=== PATIENT | male | born 1955 | race Caucasian/White ===

== ENCOUNTER 2023-05-03 06:24 | Day surgery (SDC) | payer MEDICARE, SELFPAY ==
--- NOTE | 2023-05-03 06:54 | W.ANESPRE ---
General Info Date of Service Date Performed: 05/03/23 Height: 6 ft 4 in Weight: 97.522 kg Body Mass Index (BMI): 26.2 Surgical Procedure: Operation Date: 05/03/23 07:40 Proposed Procedure Side Surgeon p Cataract Extraction with IOL Implant Right Cal Marques MD Meds Allergies and Home Medications Allergies Allergy/AdvReac Type Severity Reaction Status Date / Time No Known Allergies Allergy Unverified 05/03/23 06:51 Home Medication Medication Instructions Recorded multivitamin 1 tab PO DAILY 04/30/23 PFS Active Problems Active Problems: Problem Status Onset Code Nuclear age-related cataract, right eye H25.11 Posterior subcapsular age-related cataract, right eye H25.041 Medical History Medical History Actinic keratosis Amnesia, global, transient 2014 Arm fracture Cataract Furuncle Hemorrhoids, external Hip pain Hx of low back pain Nasal congestion Seborrheic keratosis Surgical History Surgical History (Updated 05/03/23 @ 06:49 by Shanel Brown) H/O hand surgery H/O nasal septoplasty Septorhinoplasty History of tonsillectomy and adenoidectomy Hx of vasectomy Tobacco Smoking/Tobacco Use Status: Never Alcohol Alcohol Intake: former Substance Use Substance use: Never Substance use type: does not use Vital Signs and Lab Results Lab Results Blood Type / Crossmatch: No Data to Display Complete Blood Count: No Data to Display Complete Metabolic Panel: No Data to Display Liver Function Panel: No Data to Display Coagulation Panel: No Data to Display Cardiac Panel: No Data to Display Arterial Blood Gas: No Data to Display Venous Blood Gas: No Data to Display Pancreas Panel: No Data to Display Thyroid Panel: No Data to Display Infectious Disease: No Data to Display Blood Cultures: No Data to Display Toxicology Panel: No Data to Display Anesthesia Assessment and Plan Anesthesia History Personal History: No History of Anesthesia Complications Family History: No Family History of Anesthesia Complications Exercise Tolerance Exercise Tolerance: Metabolic Equivalents>4 Pertinent Negatives Pertinent Negatives: No Symptoms of GERD Cardiac & Pulmonary Exam Cardiac Exam: Normal S1/S2 Heart Sounds Pulmonary Exam: Clear Bilateral Breath Sounds Implantable Cardiac Device Does patient have a Pacemaker or an ICD?: No Airway Exam Known Difficult Airway: No Mallampati Class: 2 Mouth Opening: Normal (> 3cm) Thyromental Distance: Greater than 3 cm Neck Range of Motion: Full ROM Neck Circumference: Normal Teeth Condition: Normal Dentition ASA Classification ASA Score: ASA 2 Emergency Case?: No NPO Status NPO Status: NPO Clears >2 hours, Solids >8 hours Anesthesia Plan Resuscitation Status: Full Code Anesthesia Technique: MAC Anesthesia Airway Planned: Natural Airway Monitors Used: Standard Monitors
[2023-05-03 06:55] VITALS: BMI 26.2
[2023-05-03] MEDS: Tropicam./Phenyleph. (1/2.5%) 5 ML BTL ×3 (06:57→07:17)
[2023-05-03 07:02] VITALS: BP 137/77; PULSE 75; RESP 16; TEMP 37; O2SAT 95
[2023-05-03] MEDS: Duovisc Viscoelastic System EACH 1 EACH (07:36)
[2023-05-03] MEDS: Lidocaine 1% Pres-Free 5 ML VIAL (07:37)
[2023-05-03] MEDS: Povidone-Iodine Ophth 30 ML BTL (07:38)
[2023-05-03] MEDS: Phenylephrine/Lidocaine (15/10) MG/ML 1 ML VIAL (07:38)
[2023-05-03] MEDS: Trypan Blue 0.06% 0.5 ML SYR (07:39)
[2023-05-03] MEDS: Tetracaine 0.5% 4 ML BTL (07:39)
[2023-05-03 07:56] VITALS: BP 120/79; PULSE 74; RESP 16; TEMP 36.2; O2SAT 96
--- NOTE | 2023-05-03 07:57 | W.PM.DSUDISC ---
Date of service: 05/03/23 Time of Service: 07:58 Discharge Plan Disposition Patient Disposition: Home Discharge Details Attending Provider: Cal Marques Primary Care Provider: Joesph Gamez Home Meds and New Rx's Prescriptions: No Action multivitamin Tablet 1 tab PO DAILY Discharge Instructions Stand Alone Forms: Post-op Topical Cataract, Corey mR (DSU) Discharge Orders Discharge Orders: Discharge Order (Routine); Ordered 05/03/23 Ordered By: Cal Marques DS: Diagnosis Discharge Diagnosis (1) Nuclear age-related cataract, right eye: Status: Resolved (2) Posterior subcapsular age-related cataract, right eye: Status: Resolved
--- NOTE | 2023-05-03 07:59 | W.PM.OP ---
Date of service: 05/03/23 Time of Service: 07:59 Operative Note Operative Note DATE OF PROCEDURE: 05/03/23 PRE-OP DIAGNOSIS: Nuclear/posterior subcapsular cataract, right eye POST-OP DIAGNOSIS: same PROCEDURE: Cataract extraction using phacoemulsification with intraocular lens implant, right eye SURGEON: Cal Marques ANESTHESIA TYPE: Local By Surgeon and MAC Refer to Anesthesia Record ESTIMATED BLOOD LOSS: 0 PATHOLOGY: none sent COMPLICATIONS: None Patient was transported to: same day Patient's condition: stable Implants: Jesse [employer] Jesse [employer] Eyhance [id number] Indications: Progressive visual loss due to cataract, right eye Procedure Description: CATARACT SURGERY OPERATIVE REPORT PREOPERATIVE DIAGNOSIS: 1. Dense nuclear/posterior subcapsular cataract, right eye POSTOPERATIVE DIAGNOSIS: Same OPERATION: 1. Cataract extraction using phacoemulsification with posterior chamber intraocular lens implant, right eye. IOL: IOL Aircraft Avionics Technician/Model: Jesse [employer] Jesse [employer]nis Eyhance DIB00 IOL Power: + 18.5 diopters IOL Serial Number: [id number] Optic Diameter: 6.0mm Haptic/Overall Diameter: 13.0mm PHACO INFO: Jose [employer]ion Vision System with OZil and Active Fluidics Cumulative Dispersed Energy (CDE): 19.49 seconds SURGEON: Cal Marques MD, PAZ ANESTHESIA: Monitored Anesthesia Care (MAC), with local sub-tenon's anesthetic infiltration COMPLICATIONS: None SPECIMENS: None INDICATIONS FOR PROCEDURE: The patient is a 68-year-old male with history of diminished visual acuity in his right eye secondary to the development of dense nuclear/posterior subcapsular cataract. He has a history of myopia and desires to remain moderately myopic following cataract surgery. Postoperative refractive target is -2.0 diopters. See office notes for detailed information. PROCEDURE: The correct surgical eye was identified and marked as the right eye and the pupil was dilated in the preoperative area using mydriatics and cycloplegics. The dilated pupil size was 7.0 mm. The patient elected to proceed without oral sedation. The patient was brought to the operating room where cardiopulmonary monitoring was instituted and surgical time-out was performed, confirming the correct operative eye and IOL power. Topical anesthesia was administered and ophthalmic povidone-iodine 5% was instilled into the conjunctival fornices. The chyuita-ocular area was prepped with Betadine 10% solution and draped in the usual sterile fashion for intraocular surgery, including an aperture drape. A Tegaderm transparent film dressing was cut in half and used to cover the lashes and lid margins. Care was taken to sequester the lashes and lid margins under the Tegaderm dressing. A lid speculum was placed between the lids of the operative eye and the Jose [employer] operating microscope was maneuvered into position. Amrit scissors were then used to make a conjunctival buttonhole approximately 6mm posterior to the limbus in the inferonasal quadrant. Blunt dissection was carried out to expose bare sclera, and a blunt-tipped sub-tenon?s anesthesia cannula was introduced and passed posteriorly along the globe where non-preserved plain lidocaine was injected into posterior sub-Tenon?s space. A sideport knife was used to make a paracentesis port. VisionBlue was injected into the anterior chamber and allowed to sit for 15 to 20 seconds. Intraocular phenylephrine/lidocaine was injected into the anterior chamber. The anterior chamber was filled with viscoelastic. A keratome knife was used to construct a 2-plane clear corneal tunnel extending 2.0mm into clear cornea. A flap was raised on the anterior capsule and capsulorhexis forceps were used to complete a continuous curvilinear capsulorhexis of 5.0 mm. Balanced salt solution was then used to perform cortical cleaving hydrodissection and nuclear hydrodelineation until the lens could be freely rotated within the capsular bag. The lens nucleus was then disassembled and removed within the capsular bag and iris plane using phacoemulsification. Residual cortical material was removed using the I/A handpiece. The posterior capsule was carefully polished to remove as much residual lens epithelial cells as safely possible. The capsular bag was then inflated and the anterior chamber deepened with cohesive viscoelastic. The lens implant described above was inserted into the capsular bag using the Jesse and Kd Simplicity pre-loaded injector. A Kuglen hook was used to dial the IOL into position. Residual viscoelastic was then removed first from posterior to the IOL, then from the anterior chamber using the I/A handpiece. The lens implant was noted to center nicely within the capsular bag. The incisions were stromally hydrated, and the anterior chamber was reformed using BSS. Then 0.5cc of moxifloxacin 1.0mg/ml were injected into the capsular bag and anterior chamber. The incisions were checked with a Weck spear and found to be secure. Several drops of ophthalmic povidone-iodine 5% were then applied to the eye followed by two drops of Imprimis combination prednisolone/moxifloxacin/nepafenac solution. The drapes were removed and a clear plastic protective eye shield was placed over the eye. The patient was then returned to [facility] in stable condition.
--- NOTE | 2023-05-03 08:17 | W.ANESPOSTOP ---
Postoperative Evaluation Date, Time and Location Date Performed: 05/03/23 Time Performed: 08:17 Patient Location: Day Surgery Unit Vital Signs Most Recent Imported Vital Signs: Most Recent Vital Signs Temp Pulse Resp BP Pulse Ox 36.2 C L 74 16 120/79 96 05/03/23 07:56 05/03/23 07:56 05/03/23 07:56 05/03/23 07:56 05/03/23 07:56 Pain Score Most Recent Pain Score: Most Recent Pain Score Pain Level 0 05/03/23 07:56 Assessment Mental Status: Awake (Alert & Oriented to Patient Baseline) Airway and Respiratory Function: Patent airway with normal (patient baseline) respiratory exam Cardiovascular Function: Hemodynamically Stable Hydration Status: Adequately Hydrated Nausea & Vomiting: No Nausea or Vomiting Pain: Pt. Denies Any Pain Peripheral Nerve Block: Patient did not receive a nerve block
== END 2023-05-03 08:21 | disposition home or self-care (01) ==
LOC: SUR 06:28
PROVIDERS: PCP Family Medicine; Visit Provider Ophthalmology
PROC: (CPT 66984; principal; 2023-05-03 07:30)
DX: H25.11 Age-related nuclear cataract, right eye (principal); H25.041 Posterior subcapsular polar age-related cataract, right eye
CPT/HCPCS: 66984; V2632